=== PATIENT | female | born 1980 | race Caucasian/White ===

== ENCOUNTER 2019-09-11 02:48 | Emergency (ER) | payer MEDICAID ==
[~2019-09-11] VITALS: Ht 167.6 cm; Wt 129.3 kg
[2019-09-11 03:00] VITALS: BP 134/86
--- NOTE | 2019-09-11 03:01 | Emergency Room Report ---
History of Present Illness General Chief Complaint: Vomiting Source: Patient (Dameon Mcgarry MD) Present Illness HPI Patient is a 39-year-old female presents after increased vomiting. Reports having right-sided abdominal pain. Reports having history of alcohol abuse. She states she drinks several bottles of alcohol a day. Reports having some dark-colored emesis. Associated cough. States she smokes marijuana. Onset of symptoms approximate 3 days ago. (Dameon Mcgarry MD) Allergies: Coded Allergies: No Known Allergies (Unverified , 09/11/19) COVID-19 Screening Contact w/high risk pt: No Recent Travel to affected area: No Experienced COVID-19 symptoms?: No (Dameon Mcgarry MD) Patient History Past Medical History: see triage record Now: No Reviewed Nursing Documentation: PMH: Agreed; PSxH: Agreed (Dameon Mcgarry MD) Nursing Documentation-PMH Past Medical History: No Stated History (Dameon Mcgarry MD) Review of Systems All Other Systems: negative except mentioned in HPI (Dameon Mcgarry MD) Physical Exam Vital Signs Date Time Temp Pulse Resp B/P (MAP) Pulse Ox O2 Delivery O2 Flow Rate FiO2 09/11/19 02:50 97.9 90 16 134/86 (102) 100 Room Air Sp02 EP Interpretation: reviewed, normal General Appearance: normal inspection, well appearing, alert, GCS 15, mild distress, obese Head: atraumatic ENT: normal ENT inspection, hearing grossly normal, normal voice Neck: normal inspection, full range of motion, supple, no bony tend Respiratory: normal inspection, lungs clear, normal breath sounds, no respiratory distress, no retraction, no wheezing Cardiovascular #1: regular rate, rhythm, no edema Gastrointestinal: normal inspection, normal bowel sounds, non tender, soft, no guarding, no hernia Genitourinary: no CVA tenderness Musculoskeletal: normal inspection, back normal, normal range of motion Neurologic: alert, motor strength/tone normal, trim master operator III-XII nml as tested, responsive, speech normal, normal inspection Psychiatric: normal inspection, judgement/insight normal, mood/affect normal (Dameon Mcgarry MD) Medical Decision Making Diagnostic Impression: Primary Impression: UGIB (upper gastrointestinal bleed) Additional Impressions: Alcoholic gastritis Qualified Codes: K29.21 - Alcoholic gastritis with bleeding Anemia Qualified Codes: D64.9 - Anemia, unspecified ER Course Patient is a 39-year-old female presented for nausea and vomiting. Differential diagnosis includes not limited to gastritis, ulcer, coagulopathy among others. Because of complexity of patient's case laboratory tests and imaging studies were ordered.Patient laboratory testing did show some evidence of mild anemia. Repeat laboratory testing was ordered. Patient was also noted to be intoxicated with alcohol. Patient was dorsal to Dr Cooper pending repeat laboratory testing. She was given IV fluids as well as acid blockers. (Dameon Mcgarry MD) ER Course Hospital Course 39 yo F presents with abd pain, vomiting blood. + ETOH use Clinical course Patient initially seen and evaluated by Dr. Mcgarry; please see his note for full history and physical Labs - no leukocytosis, there is drop in Hb from 10.5 to 8.9. coags ok. ETOH + 290. Patient would benefit from observation and serial CBC. Given additional IV fluids and Protonix. because of insurance patient will be transferred I feel this is a highly complex case requiring extensive working including EKG/ Rhythm strip, Xray/CT/US, Blood/urine lab work, repeat exams while in ED, and administration of strong opiates/narcotics for pain control, admission to hospital or close patient follow up. Diagnosis - UGIB, alcoholic gastritis, anemia Transferred in serious condition Labs Test 09/11/19 03:30 09/11/19 05:05 White Blood Count 8.2 K/UL (4.8-10.8) 7.3 K/UL (4.8-10.8) Red Blood Count 4.52 M/UL (4.20-5.40) 3.76 M/UL (4.20-5.40) Hemoglobin 10.5 G/DL (12.0-16.0) 8.9 G/DL (12.0-16.0) Hematocrit 33.2 % (37.0-47.0) 27.8 % (37.0-47.0) Mean Corpuscular Volume 73 FL (80-99) 74 FL (80-99) Mean Corpuscular Hemoglobin 23.3 PG (27.0-31.0) 23.8 PG (27.0-31.0) Mean Corpuscular Hemoglobin Concent 31.7 G/DL (32.0-36.0) 32.1 G/DL (32.0-36.0) Red Cell Distribution Width 20.2 % (11.6-14.8) 20.7 % (11.6-14.8) Platelet Count 223 K/UL (150-450) 190 K/UL (150-450) Mean Platelet Volume 6.2 FL (6.5-10.1) 6.2 FL (6.5-10.1) Neutrophils (%) (Auto) 47.3 % (45.0-75.0) 41.9 % (45.0-75.0) Lymphocytes (%) (Auto) 42.1 % (20.0-45.0) 45.3 % (20.0-45.0) Monocytes (%) (Auto) 8.9 % (1.0-10.0) 10.7 % (1.0-10.0) Eosinophils (%) (Auto) 0.4 % (0.0-3.0) 0.5 % (0.0-3.0) Basophils (%) (Auto) 1.4 % (0.0-2.0) 1.7 % (0.0-2.0) Prothrombin Time 10.3 SEC (9.30-11.50) Prothromb Time International Ratio 1.0 (0.9-1.1) Activated Partial Thromboplast Time 25 SEC (23-33) Urine Color Pale yellow Urine Appearance Slightly cloudy Urine pH 6 (4.5-8.0) Urine Specific Olds 1.005 (1.005-1.035) Urine Protein 1+ (NEGATIVE) Urine Glucose (UA) Negative (NEGATIVE) Urine Ketones Negative (NEGATIVE) Urine Blood 1+ (NEGATIVE) Urine Nitrite Negative (NEGATIVE) Urine Bilirubin Negative (NEGATIVE) Urine Urobilinogen Normal MG/DL (0.0-1.0) Urine Leukocyte Esterase 1+ (NEGATIVE) Urine RBC 2-4 /HPF (0 - 2) Urine WBC 0-2 /HPF (0 - 2) Urine Squamous Epithelial Cells Many /LPF (NONE/OCC) Urine Bacteria Moderate /HPF (NONE) Urine HCG, Qualitative Negative (NEGATIVE) Sodium Level 142 MMOL/L (136-145) Potassium Level 3.0 MMOL/L (3.5-5.1) Chloride Level 102 MMOL/L (98-107) Carbon Dioxide Level 26 MMOL/L (21-32) Anion Gap 14 mmol/L (5-15) Blood Urea Nitrogen 13 mg/dL (7-18) Creatinine 1.0 MG/DL (0.55-1.30) Estimat Glomerular Filtration Rate > 60 mL/min (>60) Glucose Level 92 MG/DL (74-106) Calcium Level 8.6 MG/DL (8.5-10.1) Total Bilirubin 0.5 MG/DL (0.2-1.0) Aspartate Amino Transf (AST/SGOT) 53 U/L (15-37) Alanine Aminotransferase (ALT/SGPT) 36 U/L (12-78) Alkaline Phosphatase 109 U/L (46-116) Troponin I 0.000 ng/mL (0.000-0.056) Total Protein 9.0 G/DL (6.4-8.2) Albumin 3.9 G/DL (3.4-5.0) Globulin 5.1 g/dL Albumin/Globulin Ratio 0.8 (1.0-2.7) Lipase 94 U/L (73-393) Serum Alcohol 290 mg/dL (Markus Cooper MD) Last Vital Signs Date Time Temp Pulse Resp B/P (MAP) Pulse Ox O2 Delivery O2 Flow Rate FiO2 09/11/19 02:50 97.9 90 16 134/86 (102) 100 Room Air Status: unchanged (Dameon Mcgarry MD) Status: improved (Markus Cooper MD) Disposition: SHORT-TERM HOSP Condition: Serious Dameon Mcgarry MD Sep 11, 2019 03:01 Markus Cooper MD Sep 11, 2019 10:47
[2019-09-11 03:34] LABS: BASOPHILS % (AUTO) 1.4 % (0.0-2.0); EOSINOPHILS % (AUTO) 0.4 % (0.0-3.0); HEMATOCRIT 33.2 % (37.0-47.0); HEMOGLOBIN 10.5 G/DL (12.0-16.0); LYMPHOCYTES % (AUTO) 42.1 % (20.0-45.0); MEAN CORPUSCULAR VOLUME 73 FL (80-99); MONOCYTES % (AUTO) 8.9 % (1.0-10.0); NEUTROPHILS % (AUTO) 47.3 % (45.0-75.0); PLATELET COUNT 223 K/UL (150-450); RED BLOOD COUNT 4.52 M/UL (4.20-5.40); RED CELL DISTRIBUTION WIDTH 20.2 % (11.6-14.8); WHITE BLOOD COUNT 8.2 K/UL (4.8-10.8)
[2019-09-11 03:35] LABS: BILIRUBIN, URINE NEGATIVE (NEGATIVE); COLOR,URINE PALE YELLOW; GLUCOSE, URINE (UA) NEGATIVE (NEGATIVE); KETONES,URINE NEGATIVE (NEGATIVE); NITRITE,URINE NEGATIVE (NEGATIVE); PH,URINE 6 (4.5-8.0); PROTEIN,URINE 1+ (NEGATIVE); UROBILINOGEN,URINE NORMAL MG/DL (0.0-1.0)
[2019-09-11 03:47] LABS: ANION GAP 14 mmol/L (5-15); BLOOD UREA NITROGEN 13 mg/dL (7-18); CALCIUM 8.6 MG/DL (8.5-10.1); CARBON DIOXIDE 26 MMOL/L (21-32); CHLORIDE 102 MMOL/L (98-107); SODIUM 142 MMOL/L (136-145)
[2019-09-11 03:51] LABS: ALANINE AMINOTRANSFERASE 36 U/L (12-78); ALBUMIN 3.9 G/DL (3.4-5.0); ALBUMIN/GLOBULIN RATIO 0.8 (1.0-2.7); ALKALINE PHOSPHATASE 109 U/L (46-116); ASPARTATE AMINO TRANSFERASE 53 U/L (15-37); BILIRUBIN,TOTAL 0.5 MG/DL (0.2-1.0)
[2019-09-11 03:55] LABS: APPEARANCE,URINE SLIGHTLY CLOUDY; LEUKOCYTE ESTERASE ,URINE 1+ (NEGATIVE)
[2019-09-11 05:20] VITALS: BP 130/87
--- NOTE | 2019-09-11 05:51 | Diagnostic Imaging Report ---
EXAM: XR Chest, 1 View CLINICAL HISTORY: SOB TECHNIQUE: Frontal view of the chest. COMPARISON: No relevant prior studies available. FINDINGS: Lungs: Faint nodular opacity projecting over the right mid lung. Pleural space: Unremarkable. No pneumothorax. Heart: Unremarkable. No cardiomegaly. Mediastinum: Unremarkable. Bones/joints: Unremarkable. Vasculature: Mildly tortuous thoracic aorta. Tubes, lines and devices: Overlying material/chest leads obscure portion of the chest. IMPRESSION: 1. Possible early nodular infiltrate in the right midlung. 2. No effusion. 3. Follow-up recommended to assess for any change
[2019-09-11 06:03] LABS: BASOPHILS % (AUTO) 1.7 % (0.0-2.0); EOSINOPHILS % (AUTO) 0.5 % (0.0-3.0); HEMATOCRIT 27.8 % (37.0-47.0); HEMOGLOBIN 8.9 G/DL (12.0-16.0); LYMPHOCYTES % (AUTO) 45.3 % (20.0-45.0); MEAN CORPUSCULAR VOLUME 74 FL (80-99); MONOCYTES % (AUTO) 10.7 % (1.0-10.0); NEUTROPHILS % (AUTO) 41.9 % (45.0-75.0); PLATELET COUNT 190 K/UL (150-450); RED BLOOD COUNT 3.76 M/UL (4.20-5.40); RED CELL DISTRIBUTION WIDTH 20.7 % (11.6-14.8); WHITE BLOOD COUNT 7.3 K/UL (4.8-10.8)
[2019-09-11] MEDS ORDERED: Pantoprazole Inj IVP ONE (07:45)
[2019-09-11 08:06] VITALS: BP 125/84
[2019-09-11 10:10] VITALS: BP 118/75
[2019-09-11] MEDS ORDERED: Morphine Sulfate 4mg/ml Inj (IV USE ONLY) IVP ONE (10:15)
[2019-09-11 11:06] VITALS: BP 122/74
== END 2019-09-11 11:06 | disposition short-term general hospital (02) ==
LOC: EDBD 02:48 → EMR 03:00
DX: K29.21 Alcoholic gastritis with bleeding (principal); D64.9 Anemia, unspecified; K92.2 Gastrointestinal hemorrhage, unspecified; F12.90 Cannabis use, unspecified, uncomplicated
CPT/HCPCS: 36415; 71045; 80053; 81003; 81025; 83690; 84484; 85025; 85610; 85730; 87086; 96361; 96374; 96375; G0480; J2270; J7030; J7040; S0028; S0164; Z7502; 99284; J8499